=== PATIENT | female | born 1960 | race Caucasian/White ===

== ENCOUNTER 2017-01-24 16:55 | Emergency (ER) | payer OTHER ==
[~2017-01-24] VITALS: Ht 167.6 cm; Wt 62.0 kg
[2017-01-24 16:57] VITALS: BP 156/94; PULSE 100; TEMP 36.9; O2SAT 95; Ht 167.6 cm; Wt 62.0 kg
--- NOTE | 2017-01-24 17:30 | DIAGNOSTIC IMAGING REPORT ---
RIGHT FOOT 3 VIEWS CLINICAL HISTORY: Right foot injury and pain. FINDINGS: 3 views of the right foot are obtained. No prior studies are available for comparison at the time of dictation. The skeletal structures appear osteopenic. No fracture is seen. The joint spaces of the foot are preserved. Mild dorsal soft tissue swelling is noted. IMPRESSION: Mild dorsal soft tissue swelling. No fracture is identified. Electronically signed by: Neel Syed M.D. 01/24/2017 5:29 PM Dictated Date/Time: 01/24/2017 5:27 PM
[2017-01-24] MEDS ORDERED: HYDR-3419 PO (17:34)
--- NOTE | 2017-01-24 18:03 | EMERGENCY ROOM VISIT NOTE ---
History First contact with patient: 17:01 Chief Complaint: FOOT PAIN Stated Complaint: RT FOOT INJURY History of Present Illness The patient is a 56 year old female who presents to the Emergency Room via private vehicle with complaints of "right foot injury". The patient states that evening she was walking into the spare bedroom of her home, when it was dark and she accidentally struck her right foot off of gun cases that were on the ground. She states that she now has pain in the top portion of the foot. She states that she did not fall low. She states the pain was minimal initially, however it has worsened. She states that yesterday morning it worsened more. She notes the pain is throbbing in nature. She rates it as a 8/ 10. She states she has a history of osteoporosis. Review of Systems A complete 6-point Review of Systems was discussed with the patient, with pertinent positives and negatives listed in the History of Present Illness. All remaining Review of Systems questions can be considered negative unless otherwise specified. Past Medical/Surgical History Osteoporosis, back ailments Family History Heart disease, hypertension Social History Smoking Status: Current Every Day Smoker Social History: Patient lives with better half. Current/Historical Medications Scheduled PRN Hydrocodon/Acetaminophen 5MG/300MG (Vicodin (5MG/300MG)), 1 TAB PO Q8H PRN for Pain Allergies Coded Allergies: No Known Allergies (Unverified , 01/24/17) Physical Exam Vital Signs Date Time Temp Pulse Resp B/P (MAP) Pulse Ox O2 Delivery O2 Flow Rate FiO2 01/24/17 16:57 36.9 100 18 156/94 95 Room Air Physical Exam VITAL SIGNS - Vital signs and nursing notes were reviewed. Patient is afebrile , hypertensive at 156/94, non-tachycardic and is saturating well on room air 95% . GENERAL -56-year-old female appearing her stated age who is in no acute distress. Communicates well with provider and answers questions appropriately. SKIN - Without rashes. The skin overlying the right foot is unremarkable. EXTREMITIES - No clubbing or peripheral cyanosis. No pretibial edema present. There is tenderness to palpation overlying the mid metatarsal region. This is of the right foot. Full range of motion of this region. With weightbearing there is referred pain in this region. No tenderness of the tibia/fibula. No tenderness of the toes. Calcaneus is unremarkable. She is neurovascularly intact in this region. +5/5 strength noted in UE/LE bilaterally. Medical Decision & Procedures ER Provider Diagnostic Interpretation: RIGHT FOOT 3 VIEWS CLINICAL HISTORY: Right foot injury and pain. FINDINGS: 3 views of the right foot are obtained. No prior studies are available for comparison at the time of dictation. The skeletal structures appear osteopenic. No fracture is seen. The joint spaces of the foot are preserved. Mild dorsal soft tissue swelling is noted. IMPRESSION: Mild dorsal soft tissue swelling. No fracture is identified. Electronically signed by: Neel Syed M.D. 01/24/2017 5:29 PM Dictated Date/Time: 01/24/2017 5:27 PM Medical Decision Patient was seen and evaluated as above. After obtaining a thorough history and physical examination radiograph was obtained of the right foot. Ice packs were initiated. Patient declined pain medication. Radiograph results as above. She was neurovascularly intact and physical examination. Radial graph does not reveal any fracture. I am suspicious of and a potential occult fracture/ligamentous injury therefore place her in a postop shoe, requests she be nonweightbearing and make this possible via crutches. She was provided these modalities here. She was educated upon the importance of follow-up, educated upon management today's findings, had questions prior to discharge and was discharged home in good condition. In the evaluation and treatment of this patient following differential diagnoses were entertained: Metatarsal fracture, ligamentous injury, among others. Impression Primary Impression: Foot pain Departure Information Dispostion Home / Self-Care Condition GOOD Referrals Ildefonso Mandujano M.D.([facility]) (PCP) King Guerrero D.O. Patient Instructions My [facility] Additional Instructions You have been treated in the Emergency Department for a right foot pain. For pain control, you can use the following dnli-erw-prxyuhh medicines (if >12 yo): - Regular strength (325mg/tab) Tylenol (acetaminophen) 2 tabs every 4-6 hours as needed. Do not exceed 12 tablets in a 24 hour period. Avoid taking more than 3 grams (3000 mg) of Tylenol per day. This includes any other sources of acetaminophen you may take on a regular basis. - Regular strength (200 mg/tab) Advil (ibuprofen) 1-2 tabs every 4-6 hours as needed. Do not exceed a dose of 3200 mg per day. If this is a recent injury (<24 hrs), ice can be applied to the area of pain for the first 3 days to help decrease pain and inflammation. You have been provided the number for an Orthopaedic Surgeon. You should call this number as soon as possible to establish a follow-up visit from today's Emergency Department visit. Keep the foot brace/splint in place until cleared by Orthopedics. Use the crutches you have been provided to keep ALL weight off of the ankle until weight bearing is tolerable. Return to the Emergency Department if your current symptoms worsen despite treatment course outlined above, or if you develop any of the following symptoms : intractable pain despite aforementioned treatment course or new onset of numbness or tingling of the foot. Please return to the emergency department with any new/concerning symptoms.
== END 2017-01-24 18:48 | disposition home or self-care (01) ==
LOC: C.EDB 16:57 → C.EDD 18:48
DX: M79.671 Pain in right foot (principal); M81.0 Age-related osteoporosis without current pathological fracture; F17.200 Nicotine dependence, unspecified, uncomplicated; Z82.49 Family history of ischemic heart disease and other diseases of the circulatory system

== ENCOUNTER 2017-03-10 22:40 | Emergency (ER) | payer OTHER ==
[~2017-03-10] VITALS: Ht 162.6 cm; Wt 67.0 kg
[~2017-03-10 22:40] MED LIST: HYDR-3419 PO
[2017-03-10 22:43] VITALS: TEMP 36.7; Ht 162.6 cm; Wt 67.0 kg
[2017-03-10] MEDS ORDERED: IBUP-1427 PO (23:02)
[2017-03-10] MEDS ORDERED: HYDROCODONE/ACETAMOPHEN 5/325MG TAB PO STA (23:59)
--- NOTE | 2017-03-11 00:24 | EMERGENCY ROOM VISIT NOTE ---
History First contact with patient: 22:46 Chief Complaint: BACK PAIN Stated Complaint: BACK & LF HIP PAIN History of Present Illness The patient is a 56 year old female who presents to the Emergency Room with complaints of left-sided back pain. The patient states that a few days ago, she bent over to open a window and felt a pulling sensation in her lower left back. She states that she has had gradually worsening pain which she now rates a 9/10. She takes hydrocodone which is prescribed by her primary care provider. She states that the pain is there no matter what position she is in. The patient has a history of osteoporosis and has had L4 to L5 compression fractures after bending over a few years ago. She denies any numbness or weakness in her lower extremities. She denies any incontinence. Review of Systems A complete 10 point review of systems was reviewed with the patient with pertinent positives and negatives as per history of present illness. All else were negative. Social History Smoking Status: Current Every Day Smoker Current/Historical Medications Scheduled Ibuprofen Tab (Motrin), 600 MG PO TID Scheduled PRN Hydrocodon/Acetaminophen 5MG/300MG (Vicodin (5MG/300MG)), 1 TAB PO Q8H PRN for Pain Allergies Coded Allergies: No Known Allergies (Unverified , 03/10/17) Physical Exam Vital Signs Date Time Temp Pulse Resp B/P (MAP) Pulse Ox O2 Delivery O2 Flow Rate FiO2 03/11/17 01:34 80 17 127/80 97 03/11/17 00:50 77 18 138/84 98 Room Air 03/10/17 22:43 36.7 115 18 152/87 95 Room Air Physical Exam VITALS: Vitals are noted on the nurse's note and reviewed by myself. Vital signs stable. GENERAL: This is a 56-year-old female, in no acute distress, nondiaphoretic, well-developed well-nourished. HEART: Regular rate and rhythm without murmurs gallops or rubs. LUNGS: Clear to auscultation bilaterally without wheezes, rales or rhonchi. ABDOMEN: Soft, nontender. MUSCULOSKELETAL: There is vague tenderness to palpation of the left lumbar region. No bruising or edema noted. There is no point tenderness over the spinous processes. Full range of motion and normal strength in bilateral lower extremities. NEURO: Patient was alert and oriented to person place and time. Normal sensation to light and sharp touch. Deep tendon reflexes 2+ throughout. No focal neurological deficits. Medical Decision & Procedures ER Provider Diagnostic Interpretation: X-RAY LUMBAR SPINE: Abnormalities of L2 and L4 possibly due to compression fractures. CT L SPINE: No evidence of acute fracture or subluxation. L2-3 disc protrusion with mild results and spinal canal narrowing. No CT evidence of significant neural foraminal narrowing. Radiologist: Trang Tuttle MD Medications Administered Medications (Trade) Dose Ordered Sig/Lashawn Route Start Time Stop Time Status Last Admin Dose Admin Acetaminophen/ Hydrocodone Bitart (Liberty 5/325 Tab) 1 tab NOW STAT PO 03/10/17 23:59 03/11/17 00:02 DC 03/11/17 00:48 1 TAB Medical Decision Differential diagnosis includes cauda equina syndrome, cord compression, disc herniation, muscle spasm, lumbar strain, epidural abscess, malignancy, transverse myelitis, urinary tract infection, colitis, diverticulitis, kidney stone, among others. The patient was evaluated as above. She presents with back pain after bending over. Due to the patient's history of osteoporosis and compression fractures, an x-ray was obtained. This was read by myself and my attending and did show some degenerative changes as well as possible compression fractures of L2 and L4. For this reason, CT scan was performed. This was read by statrad and did not show any acute fractures or subluxations. The patient was treated with 1 tablet Liberty in the emergency department. She was informed of all findings. She verbalized understanding of my assessment and treatment plan and was discharged home in good condition. Medication reconciliation: I attest that I have personally reviewed the patient 's current medication list. Blood Pressure Screening: Patient was found to have a slightly elevated blood pressure due to circumstances. I do not believe that the patient requires hypertension monitoring. Impression Primary Impression: Lumbar back pain Departure Information Dispostion Home / Self-Care Condition GOOD Referrals Ildefonso Mandujano M.D.([facility]) (PCP) Patient Instructions My [facility] Additional Instructions You have been treated in the Emergency Department for Back Pain. You have received pain medicine in the emergency department which impairs your ability to operate a vehicle. It is illegal for you to drive after receiving these medicines. For pain control, you can use the following iyrd-bvp-knwfckn medicines (if >12 yo): - Regular strength (325mg/tab) Tylenol (acetaminophen) 2 tabs every 4-6 hours as needed. Do not exceed 12 tablets in a 24 hour period. Avoid taking more than 4 grams (4000 mg) of Tylenol per day. This includes any other sources of acetaminophen you may take on a regular basis. - Regular strength (200 mg/tab) Advil (ibuprofen) 1-2 tabs every 4-6 hours as needed. Do not exceed a dose of 3200 mg per day. If this is an acute injury, ice can be applied to the area of pain for the first 3 days to help decrease pain and inflammation. After the first 3 days, a heating pad can be used over the area for continued soothing relief. You should schedule a follow-up appointment in 2-3 days with your Primary Care Provider for further evaluation and treatment of your back pain. Return to the Emergency Department if your current symptoms worsen despite treatment course outlined above, or if you develop any of the following symptoms : intractable pain despite aforementioned treatment course, loss of control of your bowel or bladder, numbness or tingling in your groin, or development of a fever.
[2017-03-11 01:34] VITALS: BP 127/80; PULSE 80; O2SAT 97
--- NOTE | 2017-03-11 06:41 | DIAGNOSTIC IMAGING REPORT ---
L-SPINE MIN 4 VIEWS ROUTINE HISTORY: 56 years Female left sided back pain COMPARISON: Lumbar spine CT 03/11/2017 TECHNIQUE: 5 views of the lumbar spine FINDINGS: There are 5 nonrib-bearing lumbar type vertebral segments. The bones are mildly demineralized. Large Schmorl's node involving the superior endplate L2 with mild anterior endplate compression deformity is age indeterminate. No significant retropulsion is identified. There is severe intervertebral disc space narrowing with spondylitic spurring and facet arthropathy at L5-S1. Multilevel facet arthrosis is demonstrated. Bowel gas pattern is nonobstructive. There is moderate volume of formed stools in the left hemicolon. IMPRESSION: 1. Large Schmorl's node involving the superior endplate L2 with mild anterior endplate compression is age indeterminate without comparison and better evaluated on CT of same day. No associated retropulsion. 2. Severe intervertebral disc space narrowing with posterior spondylitic spurring and facet arthrosis at L5-S1. The above report was generated using voice recognition software. It may contain grammatical, syntax or spelling errors. Electronically signed by: Mohinder Nguyen M.D. 03/11/2017 6:40 AM Dictated Date/Time: 03/11/2017 6:37 AM
--- NOTE | 2017-03-11 07:02 | DIAGNOSTIC IMAGING REPORT ---
CT OF THE LUMBAR SPINE WITHOUT CONTRAST CLINICAL HISTORY: Low back pain with history of osteoporosis and compression fracture. COMPARISON STUDY: Lumbar spine radiographs March 10, 2017. FINDINGS: For purposes of numbering on this exam, the L5-S1 disc space is assigned to axial image 285 of [id number]. There is a large Schmorl's node involving the superior endplate of L2 with mild loss of vertebral body height. This is likely chronic. There is no acute lumbar spine fracture. There is marked disc space narrowing with osteophytosis and vacuum disc phenomenon at L5-S1. No suspicious osseous lesion is present. Paravertebral soft tissues are unremarkable. The central canal and neural foramen are suboptimally assessed by CT. There is a moderate to large left paracentral disc protrusion at L2-L3 that results in moderate narrowing of the left aspect of the canal and left lateral recess. There is a small left paracentral disc protrusion at L1-L2. There is mild multilevel neural foraminal stenosis. IMPRESSION: 1. No acute lumbar spine fracture. 2. Schmorl's node involving the superior endplate of L2 with mild loss of vertebral body height. This compression deformity is likely chronic. 3. Moderate to large left paracentral disc protrusion at L2-L3 that results in moderate narrowing of the left aspect of the central canal and left lateral recess. 4. Small left paracentral disc protrusion at L1-L2. Electronically signed by: Ibrahima Rajan M.D. 03/11/2017 7:01 AM Dictated Date/Time: 03/11/2017 6:53 AM
== END 2017-03-11 01:34 | disposition home or self-care (01) ==
LOC: C.EDB 22:41 → C.EDA 03-11 01:34
DX: M54.5 Low back pain (principal); M81.0 Age-related osteoporosis without current pathological fracture; F17.200 Nicotine dependence, unspecified, uncomplicated